=== PATIENT | female | born 1995 | race Caucasian/White ===

== ENCOUNTER → 2018-05-09 | Outpatient (CLI) | payer OTHER | LOC: OD 10:20 | PROVIDERS: ATTEND Obstetrics & Gynecology Reproductive Endocrinology | DX: Z31.49 Encounter for other procreative investigation and testing (principal) | CPT/HCPCS: 36415; 84144 ==

== ENCOUNTER → 2020-05-19 | Outpatient (CLI) | payer SELFPAY | LOC: OD 13:36 | PROVIDERS: ATTEND Nurse Practitioner Primary Care | DX: N97.9 Female infertility, unspecified (principal); E34.9 Endocrine disorder, unspecified | CPT/HCPCS: 36415; 82670; 84144 ==

== ENCOUNTER → 2020-06-04 | Outpatient (CLI) | payer SELFPAY | LOC: OD 08:33 | PROVIDERS: ATTEND Nurse Practitioner Primary Care | DX: E34.9 Endocrine disorder, unspecified (principal); E28.9 Ovarian dysfunction, unspecified; N97.9 Female infertility, unspecified | CPT/HCPCS: 36415; 82670; 84144; 86317 ==

== ENCOUNTER → 2020-07-01 | Outpatient (CLI) | payer OTHER | LOC: OD 14:38 | DX: N97.9 Female infertility, unspecified (principal); E34.9 Endocrine disorder, unspecified | CPT/HCPCS: 36415; 82670; 84144 ==

== ENCOUNTER → 2020-07-16 | Outpatient (CLI) | payer OTHER | LOC: OD 13:10 | PROVIDERS: ATTEND Nurse Practitioner Primary Care | DX: E34.9 Endocrine disorder, unspecified (principal); N97.9 Female infertility, unspecified | CPT/HCPCS: 36415; 82670; 84144 ==